=== PATIENT | male | born 1965 | race Caucasian/White ===

== ENCOUNTER 2017-02-10 08:37 | Emergency (ER) | payer MEDICARE ==
[2017-02-10 09:18] VITALS: BP 148/93
--- NOTE | 2017-02-10 09:36 | UC ---
Dental HPI - HPI Summary HPI Summary: 51 male presents to with complaints of sinus congestion, headache, dental pain and swelling of right cheek that began Friday02/08/17 and has worsened since. Patient states it is tender to touch. Knows he also has a tooth that is fractured, has caries and needs to be pulled on right upper side. Denies any drainage, palpable abscess, trouble swallowing and trouble breathing. No other complaints at this time. Admits to low grade fever/chills. No PMHx. Has been taking aspirin with some relief. - History of Current Complaint Chief Complaint: UCHeadache Stated Complaint: SINUS COMPLAINT Time Seen by Provider: 02/10/17 09:10 Hx Obtained From: Patient Onset/Duration: Sudden Onset, Lasting Days, Still Present, Worse Since Severity: Moderate Pain Intensity: 4 Pain Scale Used: 0-10 Numeric Aggravating Factor(s): Chewing Alleviating Factor(s): OTC Meds - aspirin - Allergies/Home Medications Allergies/Adverse Reactions: Allergies Allergy/AdvReac Type Severity Reaction Status Date / Time Acetaminophen AdvReac Kidney Verified 02/10/17 09:18 ache the day after I take it. Home Medications: Home Medications Aspirin TAB* [Aspirin 325 MG TAB*] 650 mg PO Q4H PRN 02/10/17 [History Confirmed 02/10/17] PMH/Surg Hx/FS Hx/Imm Hx - Additional Past Medical History Additional PMH: Denies DM and asthma. - Surgical History Surgical History: Yes Surgery Procedure, Year, and Place: Appendectomy. Pyloric Stenosis Repair. parotidectomy - Family History Known Family History: Positive: Other - pt was in foster care as child, mother with psychiatric problems - Social History Alcohol Use: Occasionally Substance Use Type: None Smoking Status (MU): Former Smoker Type: Smokeless Tobacco Amount Used/How Often: 3 cans weekly - Immunization History Most Recent Influenza Vaccination: not this season Most Recent Tetanus Shot: 1995 Review of Systems Constitutional: Fever - low grade ENT: Dental Pain, Sinus Congestion - with swelling, Sinus Pain/Tenderness Respiratory: Negative Cardiovascular: Negative Neurological: Headache All Other Systems Reviewed And Are Negative: Yes Physical Exam Triage Information Reviewed: Yes Appearance: Well-Appearing, No Pain Distress, Well-Nourished Vital Signs: Initial Vital Signs Temp 99.1 F 02/10/17 09:08 Pulse 74 02/10/17 09:08 Resp 22 02/10/17 09:08 BP 148/93 02/10/17 09:08 BP elevated and noted. encouraged follow up for recheck and evaluation with PCP within 1-2 weeks. asymptomatic at this time. anxious to be at doctors, possible white coat HTN. Vital Signs Reviewed: Yes Eyes: Positive: Conjunctiva Clear ENT: Positive: Normal ENT inspection, Hearing grossly normal, Pharynx normal, Nasal congestion, TMs normal, Sinus tenderness - right maxillary with edema, Uvula midline, Other - patent airway no sign of abscess appreciated. Negative: Pharyngeal erythema, Tonsillar swelling, Tonsillar exudate, Muffled voice Dental: Positive: Percussion Tenderness @ - maxillary right side, Gross Decay/ Caries @ - throughout, Dental Fracture @ - throughout with right upper 1-2 teeth being worse, with edema, Abscess @ - suspected although too deep to be palpated, Cervical Lymphadenopathy Neck: Positive: Supple, Nontender, Enlarged Nodes @ - tonsillar b/l Respiratory: Positive: Chest non-tender, Lungs clear, Normal breath sounds, No respiratory distress, No accessory muscle use Cardiovascular: Positive: RRR, No Murmur, Pulses Normal Musculoskeletal: Positive: Strength Intact Neurological: Positive: Alert Skin Exam: Normal Dental Complaint Course/Dx - Course Course Of Treatment: told to switch to ibuprofen instead of aspirin. given augmentin. salt water swishes, oraljel, increase fluid intake, good oral hygiene. dentist follow up. no palpable abscess appreciated on exam. appears to be a sinusitis and dental infection/abscess causing swelling. ibuprofen for pain and inflammation starting at 10am. follow up with pcp. aware of worsening signs and symptoms and to go to ER if occur due to history of needing IV anitbiotics for sinusitis in the past. no concern for other etiology at this time. - Differential Dx/Diagnosis Differential Diagnosis/Dx: Dental Abscess, Dental Caries, Fractured Tooth, Other - sinusitis Provider Diagnoses: sinusitis, dental abscess, dental fracture and caries Discharge - Discharge Plan Condition: Stable Disposition: HOME Prescriptions: Amoxicillin/Clavulanate TAB* [Augmentin TAB 875*] 875 mg PO BID #20 tab Fluticasone NASAL SPRAY 50MCG* [Flonase NASAL SPRAY 50MCG*] 2 spray BOTH NARES DAILY #1 btl Ibuprofen TAB* [Motrin TAB* 600 MG] 600 mg PO Q6H PRN #30 tab PRN Reason: Pain Patient Education Materials: Dental Abscess (ED), Sinusitis (ED), Toothache (ED ), Warm Compress or Soak (ED) Referrals: ONEAL Erwin [Medical Doctor] - Additional Instructions: Ibuprofen/tylenol for pain, fever and inflammation. Salt water swishes. Increase fluid intake. Good oral hygiene. Warm compresses. Take prescribed antibiotic as directed, do not miss a dose. Give 24-48 hours for some improvement. Flonase for nasal and sinus congestion, also recommend saline rinses sold over the counter. If symptoms worsen or do not improve please seek medical attention promptly as discussed. Recommend following up with dentist this week. Follow up with PCP for BP recheck and evaluation within 2 weeks.
== END 2017-02-10 09:52 | disposition home or self-care (01) ==
LOC: UCCORT 08:37
DX: J32.9 Chronic sinusitis, unspecified (principal); K04.7 Periapical abscess without sinus; K03.81 Cracked tooth; K02.9 Dental caries, unspecified; Z88.6 Allergy status to analgesic agent; Z87.891 Personal history of nicotine dependence
CPT/HCPCS: 99212; G0463

== ENCOUNTER 2017-10-06 14:03 | Emergency (ER) | payer MEDICARE ==
[2017-10-06 14:09] VITALS: BP 143/93
[2017-10-06] MEDS ORDERED: Lidocaine 1% MPF* 2 ML VIAL INJ ONE (14:53)
--- NOTE | 2017-10-06 15:25 | UC ---
Laceration HPI - HPI Summary HPI Summary: states he accidentally cut himself on left forearm with a box knife as he was repairing reticle printer. Denies pain, numbness. States he can move all fingers without a problem. Last Td was about 4 years ago. - History Of Current Complaint Chief Complaint: UCLaceration Stated Complaint: LEFT ARM LAC Time Seen by Provider: 10/06/17 14:39 Hx Obtained From: Patient Laceration Location: Arm Mechanism Of Injury: Sharp Trauma Onset/Duration: Sudden Onset, Lasting Minutes Severity: Mild Pain Intensity: 3 Aggravating Factors: Nothing - Allergies/Home Medications Allergies/Adverse Reactions: Allergies Allergy/AdvReac Type Severity Reaction Status Date / Time acetaminophen Allergy See Comment Verified 10/06/17 14:04 PMH/Surg Hx/FS Hx/Imm Hx Previously Healthy: Yes Cardiovascular History: Hypertension - Surgical History Surgical History: Yes Surgery Procedure, Year, and Place: Appendectomy. Pyloric Stenosis Repair. parotidectomy. T&A - Family History Known Family History: Positive: Hypertension, Other - pt was in foster care as child, mother with psychiatric problems - Social History Alcohol Use: Occasionally Substance Use Type: None Smoking Status (MU): Current Every Day Smoker Type: Smokeless Tobacco Amount Used/How Often: 3 cans weekly - Immunization History Most Recent Influenza Vaccination: not this season Most Recent Tetanus Shot: 4 years ago Review of Systems Constitutional: Negative Skin: Other - laceration All Other Systems Reviewed And Are Negative: Yes Physical Exam Triage Information Reviewed: Yes Appearance: Well-Appearing, No Pain Distress, Obese Vital Signs: Initial Vital Signs Temp 98.4 F 10/06/17 14:05 Pulse 74 10/06/17 14:05 Resp 17 10/06/17 14:05 BP 143/93 10/06/17 14:05 Pulse Ox 97 10/06/17 14:05 Eyes: Positive: Conjunctiva Clear Neck: Positive: Supple Respiratory: Positive: Chest non-tender Cardiovascular: Positive: Pulses Normal, Brisk Capillary Refill Abdomen Description: Positive: Nontender Musculoskeletal: Positive: Strength Intact, ROM Intact, No Edema Skin Exam: Other - 1.8cm linear laceration along radial aspect of distal forearm involving skin and subcutaneous skin. Movement of fingers and thumb preserved. Radial and ulnar pulses are intact. Laceration Course/Dx - Differential Dx - Laceration/Wound Provider Diagnoses: laceration left arm Discharge - Sign-Out/Discharge Documenting (check all that apply): Patient Departure, Post-Discharge Follow Up - Discharge Plan Condition: Stable Disposition: HOME Patient Education Materials: Care For Your Stitches (ED), Acute Wound Care (ED) Referrals: Jonathan CAICEDO,Federico Mak [Primary Care Provider] - - Billing Disposition and Condition Condition: STABLE Disposition: Home Images Hands: 1 - 1.8 cm linear laceration
== END 2017-10-06 15:30 | disposition home or self-care (01) ==
LOC: UCCORT 14:03
DX: W26.0XXA Contact with knife, initial encounter (principal); Y93.89 Activity, other specified; Y92.9 Unspecified place or not applicable; S51.812A Laceration without foreign body of left forearm, initial encounter; Z88.6 Allergy status to analgesic agent; I10 Essential (primary) hypertension; F17.210 Nicotine dependence, cigarettes, uncomplicated
CPT/HCPCS: 99211; G0463

== ENCOUNTER 2017-10-14 09:09 | Emergency (ER) | payer MEDICARE ==
[2017-10-14 09:28] VITALS: BP 164/98
--- NOTE | 2017-10-14 09:37 | UC ---
HPI Wound/Suture Re-check - HPI Summary HPI Summary: here for suture removal laceration of left wrist 8 days ago , cut his wrist 8 days ago with a box chipper , had 3 sutures placed in 8 days ago the area is healing well, has no complaints - History Of Current Complaint Chief Complaint: UCLaceration Stated Complaint: STITCHES REMOVAL Time Seen by Provider: 10/14/17 09:28 Hx Obtained From: Patient Onset/Duration: Sudden Onset, Lasting Days - 8, Still Present Severity: Moderate Pain Intensity: 0 Procedure Type: suture removal Surgery Date: 10/06/17 - Allergies/Home Medications Allergies/Adverse Reactions: Allergies Allergy/AdvReac Type Severity Reaction Status Date / Time acetaminophen Allergy See Comment Verified 10/06/17 14:04 PMH/Surg Hx/FS Hx/Imm Hx Cardiovascular History: Hypertension - Surgical History Surgical History: Yes Surgery Procedure, Year, and Place: Appendectomy. Pyloric Stenosis Repair. parotidectomy. T&A - Family History Known Family History: Positive: Hypertension, Other - pt was in foster care as child, mother with psychiatric problems - Social History Alcohol Use: Occasionally Substance Use Type: None Smoking Status (MU): Current Every Day Smoker Type: Smokeless Tobacco Amount Used/How Often: 3 cans weekly - Immunization History Most Recent Influenza Vaccination: not this season Most Recent Tetanus Shot: 4 years ago Review of Systems Constitutional: Negative Eyes: Negative ENT: Negative Respiratory: Negative Cardiovascular: Negative Is Patient Immunocompromised?: No All Other Systems Reviewed And Are Negative: Yes Physical Exam Triage Information Reviewed: Yes Appearance: Well-Appearing, No Pain Distress, Well-Nourished Vital Signs: Initial Vital Signs Temp 98.5 F 10/14/17 09:21 Pulse 60 10/14/17 09:21 Resp 20 10/14/17 09:21 BP 164/98 10/14/17 09:21 Pulse Ox 99 10/14/17 09:21 Vital Signs Reviewed: Yes Eye Exam: Normal Eyes: Positive: Conjunctiva Clear ENT: Positive: Normal ENT inspection, Hearing grossly normal, Pharynx normal Neck: Positive: Supple, Nontender, No Lymphadenopathy Respiratory: Positive: Chest non-tender, Lungs clear, Normal breath sounds Cardiovascular: Positive: RRR, No Murmur, Pulses Normal Musculoskeletal Exam: Normal Skin: Positive: Other - 1 cm laceration left wrist , laceration is healing well , no erythema, no discharge, no pain or swelling, 3 sutures intact, was removed Course/Dx - Differential Dx - Laceration/Wound Provider Diagnoses: suture removal Discharge - Sign-Out/Discharge Documenting (check all that apply): Patient Departure - Discharge Plan Condition: Stable Disposition: HOME Patient Education Materials: Stitches Removal (ED) Referrals: Federico Sandoval [Primary Care Provider] - If Needed - Billing Disposition and Condition Condition: STABLE Disposition: Home
== END 2017-10-14 09:36 | disposition home or self-care (01) ==
LOC: UCCORT 09:09
DX: S61.512D Laceration without foreign body of left wrist, subsequent encounter (principal); W26.0XXD Contact with knife, subsequent encounter; Y92.9 Unspecified place or not applicable; Z88.6 Allergy status to analgesic agent; I10 Essential (primary) hypertension

== ENCOUNTER 2018-06-29 19:46 | Emergency (ER) | payer MEDICARE ==
[2018-06-29 20:05] VITALS: BP 138/73
--- NOTE | 2018-06-29 20:05 | UC ---
Respiratory Complaint HPI - HPI Summary HPI Summary: 52 yo male presents with productive cough with green sputum and sinus pain/ pressure/congestion for the last week. Over the last 2 days has developed left ear pain. He tells me that his was sick was similar symptoms and was treated with a zpak and is feeling better. He has felt hot/cold, but has not taken his temperature. He does not feel short of breath. He does smoke daily. Denies sore throat, SOB, chest pain, abdominal pain. - History of Current Complaint Stated Complaint: CONGETSION,EARS,COUGH Hx Obtained From: Patient Onset/Duration: Gradual Onset Severity Initially: Mild Severity Currently: Mild Pain Intensity: 1 Pain Scale Used: 0-10 Numeric Character: Cough: Productive - Allergies/Home Medications Allergies/Adverse Reactions: Allergies Allergy/AdvReac Type Severity Reaction Status Date / Time acetaminophen Allergy See Comment Verified 06/29/18 20:06 Home Medications: Home Medications Aspirin TAB* [Aspirin 325 MG TAB*] 650 mg PO Q6H PRN 06/29/18 [History Confirmed 06/29/18] PMH/Surg Hx/FS Hx/Imm Hx Respiratory History: Asthma Psychological History: Bipolar Disorder - Surgical History Surgical History: Yes Surgery Procedure, Year, and Place: Appendectomy. Pyloric Stenosis Repair. parotidectomy. T&A - Family History Known Family History: Positive: Hypertension, Other - pt was in foster care as child, mother with psychiatric problems - Social History Lives: With Family Alcohol Use: Occasionally Substance Use Type: None Smoking Status (MU): Current Every Day Smoker Type: Smokeless Tobacco Amount Used/How Often: 3 cans weekly - Immunization History Most Recent Influenza Vaccination: not this season Most Recent Tetanus Shot: 4 years ago Review of Systems All Other Systems Reviewed And Are Negative: Yes Constitutional: Positive: Negative Skin: Positive: Negative Eyes: Positive: Negative ENT: Positive: Ear Ache, Nasal Discharge, Sinus Congestion, Sinus Pain/ Tenderness Respiratory: Positive: Cough Cardiovascular: Positive: Negative Gastrointestinal: Positive: Negative Neurological: Positive: Negative Psychological: Positive: Negative Physical Exam - Summary Physical Exam Summary: GENERAL: NAD. WDWN. No pain distress. SKIN: No rashes, sores, lesions, or open wounds. HEENT: Head: AT/NC Eyes: EOM intact. Conjunctiva clear without inflammation or discharge. Ears: Hearing grossly normal. LEFT TM with mild erythema and bulging. No canal edema or drainage. Nose: Nasal mucosa mildly swollen and erythematous with yellow/ clear discharge. TTP maxillary and frontal sinus. Positive post nasal drip Throat: Posterior oropharynx without exudates, erythema, or tonsillar enlargement. Uvula midline. NECK: Supple. Nontender. No lymphadenopathy. CHEST: CTAB. No r/r/w. No accessory muscle use. Breathing comfortably and in no distress. CV: RRR. Without m/r/g. Pulses intact. NEURO: Alert. PSYCH: Age appropriate behavior. Triage Information Reviewed: Yes Vital Signs: Vital Signs: Temp Pulse Resp BP Pulse Ox 100.7 F 81 20 138/73 99 06/29/18 20:00 06/29/18 20:00 06/29/18 20:00 06/29/18 20:00 06/29/18 20:00 Vital Signs Reviewed: Yes Respiratory Course/Dx - Course Course Of Treatment: CXR: No radiologist reading after 1800, therefore wet read by myself is negative for PNA. Otitis media and sinusitis. Will rx for augmentin and have him f/u if symptoms do not improve in the next 5-7 days - Differential Dx/Diagnosis Provider Diagnosis: Sinusitis, Otitis media, Bronchitis Discharge - Sign-Out/Discharge Documenting (check all that apply): Patient Departure All imaging exams completed and their final reports reviewed: No - Discharge Plan Condition: Stable Disposition: HOME Prescriptions: Amoxicillin/Clavulanate TAB* [Augmentin TAB 875*] 875 mg PO BID #14 tab Patient Education Materials: Sinusitis (ED), Acute Bronchitis (ED) Referrals: Chase Diaz MD [Primary Care Provider] - Additional Instructions: If you develop a fever, shortness of breath, chest pain, new or worsening symptoms - please call your PCP or go to the ED immediately. Your blood pressure was high at todays visit. Please see your primary provider within 4 weeks for recheck and re-evaluation. - Billing Disposition and Condition Condition: STABLE Disposition: Home - Attestation Statements Provider Attestation: Per institutional requirements, I have reviewed the chart, however, I was not consulted specifically or made aware of this patient by the midlevel provider. I did not personally evaluate, interact with , or disposition this patient.
--- NOTE | 2018-06-30 08:20 | UC ---
- Progress Note Progress Note: chest xray report: IMPRESSION: NO EVIDENCE FOR ACTIVE CARDIOPULMONARY DISEASE. Course/Dx - Diagnoses Provider Diagnoses: Sinusitis, Otitis media, Bronchitis Discharge - Sign-Out/Discharge Documenting (check all that apply): Patient Departure All imaging exams completed and their final reports reviewed: Yes - Discharge Plan Condition: Stable Disposition: HOME Prescriptions: Amoxicillin/Clavulanate TAB* [Augmentin TAB 875*] 875 mg PO BID #14 tab Patient Education Materials: Sinusitis (ED), Acute Bronchitis (ED) Referrals: Chase Diaz MD [Primary Care Provider] - Additional Instructions: If you develop a fever, shortness of breath, chest pain, new or worsening symptoms - please call your PCP or go to the ED immediately. Your blood pressure was high at todays visit. Please see your primary provider within 4 weeks for recheck and re-evaluation. - Billing Disposition and Condition Condition: STABLE Disposition: Home
== END 2018-06-29 20:25 | disposition home or self-care (01) ==
LOC: UCCORT 19:46
DX: J32.9 Chronic sinusitis, unspecified (principal); H66.92 Otitis media, unspecified, left ear; J45.909 Unspecified asthma, uncomplicated; F31.9 Bipolar disorder, unspecified; Z88.6 Allergy status to analgesic agent; F17.220 Nicotine dependence, chewing tobacco, uncomplicated
CPT/HCPCS: 71046; 99212; G0463

== ENCOUNTER 2018-09-04 10:27 | Emergency (ER) | payer MEDICARE ==
[2018-09-04 11:47] VITALS: BP 175/105
--- NOTE | 2018-09-04 12:05 | UC ---
Throat Pain/Nasal Shane HPI - HPI Summary HPI Summary: 52-year-old male comes in with a chief complaint of upper respiratory tract infection symptoms for 2 weeks. He's got yellow-green rhinorrhea and sinus pressure. He does have some wheezing. He has albuterol inhalers at home which he does not use. No recent fevers or chills. He did use some [id number] medications which did not help much. - History of Current Complaint Chief Complaint: UCGeneralIllness Stated Complaint: UPPER RESP SYMPTOMS Time Seen by Provider: 09/04/18 11:46 Pain Intensity: 0 - Allergies/Home Medications Allergies/Adverse Reactions: Allergies Allergy/AdvReac Type Severity Reaction Status Date / Time acetaminophen Allergy See Comment Verified 09/04/18 11:47 PMH/Surg Hx/FS Hx/Imm Hx Previously Healthy: Yes Cardiovascular History: Hypertension - Surgical History Surgical History: Yes Surgery Procedure, Year, and Place: Appendectomy. Pyloric Stenosis Repair. parotidectomy. T&A - Family History Known Family History: Positive: Hypertension, Other - pt was in foster care as child, mother with psychiatric problems - Social History Alcohol Use: Occasionally Substance Use Type: None Smoking Status (MU): Never Smoked Tobacco Type: Smokeless Tobacco Amount Used/How Often: 3 cans weekly Length of Time of Smoking/Using Tobacco: 30 years - Immunization History Most Recent Influenza Vaccination: not this season Most Recent Tetanus Shot: 4 years ago Review of Systems All Other Systems Reviewed And Are Negative: Yes Constitutional: Positive: Negative Skin: Positive: Negative Eyes: Positive: Negative ENT: Positive: Sore Throat, Nasal Discharge, Sinus Congestion, Sinus Pain/ Tenderness Respiratory: Positive: Other - SEE HPI Cardiovascular: Positive: Negative Gastrointestinal: Positive: Negative Motor: Positive: Negative Neurovascular: Positive: Negative Musculoskeletal: Positive: Negative Neurological: Positive: Negative Psychological: Positive: Negative Is Patient Immunocompromised?: No Physical Exam Triage Information Reviewed: Yes Appearance: Well-Appearing, No Pain Distress, Well-Nourished Vital Signs: Initial Vital Signs Temp 98.4 F 09/04/18 11:41 Pulse 59 09/04/18 11:41 Resp 20 09/04/18 11:41 BP 175/105 09/04/18 11:41 Pulse Ox 100 09/04/18 11:41 Vital Signs Reviewed: Yes Eye Exam: Normal Eyes: Positive: Conjunctiva Clear ENT: Positive: Pharynx normal, Nasal congestion, Nasal drainage, TMs normal Neck: Positive: Supple Respiratory: Positive: Lungs clear, Normal breath sounds, No respiratory distress Cardiovascular: Positive: RRR Musculoskeletal: Positive: Strength Intact, ROM Intact Neurological Exam: Normal Neurological: Positive: Alert, Muscle Tone Normal Psychological Exam: Normal Psychological: Positive: Age Appropriate Behavior Skin Exam: Normal Throat Pain/Nasal Course/Dx - Differential Dx/Diagnosis Provider Diagnosis: Sinusitis Discharge - Sign-Out/Discharge Documenting (check all that apply): Patient Departure All imaging exams completed and their final reports reviewed: No Studies - Discharge Plan Condition: Stable Disposition: HOME Prescriptions: Amoxicillin/Clavulanate TAB* [Augmentin TAB 875*] 875 mg PO BID #20 tab Fluticasone NASAL SPRAY 50MCG* [Flonase NASAL SPRAY 50MCG*] 2 spray BOTH NARES DAILY #1 btl Patient Education Materials: Sinusitis (ED) Referrals: Chase Diaz MD [Primary Care Provider] - Additional Instructions: FOLLOW UP WITH YOUR DOCTOR IF NOT COMPLETELY IMPROVED. GET REEVALUATED SOONER IF WORSE OR ANY QUESTIONS OR CONCERNS. - Billing Disposition and Condition Condition: STABLE Disposition: Home
== END 2018-09-04 12:09 | disposition home or self-care (01) ==
LOC: UCCORT 10:27
DX: J32.9 Chronic sinusitis, unspecified (principal); I10 Essential (primary) hypertension; F17.220 Nicotine dependence, chewing tobacco, uncomplicated
CPT/HCPCS: 99212; G0463